=== PATIENT | female | born 1980 | race American Indian/Alaskan Native ===

== ENCOUNTER 2021-08-17 19:44 | Emergency (ER) | payer OTHER ==
[~2021-08-17] VITALS: Ht 167.6 cm; Wt 63.6 kg
[2021-08-17 20:27] VITALS: BP 138/72
[2021-08-17] MEDS ORDERED: ondansetron 4mg rapidly disintigrating tab PO ONE (21:50)
[2021-08-17] MEDS ORDERED: dexamethasone sod phosphate 10mg/ml inj IM STA (21:50)
[2021-08-17] MEDS ORDERED: HYDROcodone/acetaminophen 5mg/325mg tablet PO ONE (21:50)
[2021-08-17] MEDS ORDERED: IBUP-1984 PO (22:17)
[2021-08-17] MEDS ORDERED: PRED20TA PO (22:17)
[2021-08-17] MEDS ORDERED: AMOX-117 PO (22:17)
--- NOTE | 2021-08-17 22:30 | NUR ---
IM GIVEN PO X2 GIVEN
== END 2021-08-17 22:43 | disposition home or self-care (01) ==
LOC: ER 19:45
DX: H66.013 Acute suppurative otitis media with spontaneous rupture of ear drum, bilateral (principal); H92.03 Otalgia, bilateral; Z88.8 Allergy status to other drugs, medicaments and biological substances; Z79.2 Long term (current) use of antibiotics; Z79.899 Other long term (current) drug therapy
CPT/HCPCS: 96372; 99283; J1100